=== PATIENT | female | born 1990 | race Two or more races ===

== ENCOUNTER 2022-09-12 09:42 | Emergency (ER) | payer OTHER ==
[~2022-09-12] VITALS: Ht 165.1 cm; Wt 76.9 kg
[2022-09-12 10:57] VITALS: BP 147/84
[2022-09-12 11:03] LABS: Basophils # (auto) 0 10 ^3/uL (0-0.2); Basophils % (auto) 0.5 % (0.0-2.0); Eosinophils # (auto) 0 10 ^3/uL (0-0.8); Eosinophils % (auto) 0.4 % (0.0-7.0); Hematocrit 42.4 % (36.0-46.0); Hemoglobin 13.9 g/dL (12.2-16.2); Lymphocytes # (auto) 2.2 10 ^3/uL (0.4-5.4); Lymphocytes % (auto) 22.8 % (10.0-50.0); Mean Corpuscular Hemoglobin 28.9 pg (28.0-32.0); Mean Corpuscular Hgb Conc. 32.8 g/dL (32.0-36.0); Monocytes # (auto) 0.5 10 ^3/uL (0-1.3); Monocytes % (auto) 5.7 % (0.0-12.0); Neutrophils # (auto) 6.7 10 ^3/uL (1.6-8.6); Neutrophils % (auto) 70.6 % (37.0-80.0); Red Blood Cells 4.82 10^6/uL (4.0-5.20); Red Cell Distribution Width 14.7 % (11.8-14.3); White Blood Cell 9.4 10^3/uL (4.4-10.8)
[2022-09-12 11:20] LABS: Albumin 3.7 g/dL (3.4-5.0); Calcium 8.9 mg/dL (8.5-10.1); Potassium 4.4 mmol/L (3.5-5.1)
[2022-09-12 11:24] LABS: BUN/Creatinine Ratio 11.1; Bilirubin, Total 0.4 mg/dL (0.2-1.0); Total Protein 6.8 g/dL (6.4-8.2)
[2022-09-12 11:38] LABS: Urine Bacteria FEW /hpf (None Seen); Urine Blood Negative /uL (Negative); Urine Specific Gravity 1.008 (1.001-1.035); Urine WBC 11 /hpf (0 - 5)
== END 2022-09-12 14:12 | disposition home or self-care (01) ==
LOC: ER 09:52
DX: Z32.01 Encounter for pregnancy test, result positive (principal); N83.201 Unspecified ovarian cyst, right side
CPT/HCPCS: 36415; 76801; 76817; 80053; 81001; 84702; 85025

== ENCOUNTER 2025-03-13 19:20 | Inpatient (IN) | payer OTHER ==
[~2025-03-13] VITALS: Ht 165.1 cm; Wt 77.3 kg
[2025-03-13] MEDS: SOD CHL 0.45% 1,000 ML IV ONE (02:37)
--- NOTE | 2025-03-13 19:51 | ED.PDOC ---
HPI (NEURO) HPI Comments 34 year old Female was BIB Mother for the c/c of CP, ABD pain, SOB, N/V. Per Mother pt was eating soup at home when she started to feel N/, and ABD Pain. Mother states she started experiencing associated CP shortly after. Pt is noted to be non-verbal at this time, and has progressively worsening symptoms before arrival. Pt has a SHx of a Cholecystectomy, and currently taking Ozempic. No other associated symptoms, modifiers, recent injuries or sick contacts present at this time. Time Seen by MD: 19:44 Reviewed Notes: Nurses Notes, Medications, Allergies Information Source: Patient, Relative (Mother) Severity: Moderate Headache Severity: None Timing: Hours Duration: Since onset, Hours Prehospital treatment: None Weakness Location: Generalized Onset: At rest Circumstances: Spontaneous Symptoms: Weakness, Difficult speech, Difficulty talking, Difficulty walking Before: Normal After: Confusion History of: None Associated Signs and Symptoms: Nausea, Vomiting, Chest Pain, Weakness Vital Signs Vital Signs Date Time Temp Pulse Resp B/P (MAP) Pulse Ox O2 Delivery O2 Flow Rate FiO2 03/13/25 21:36 86 18 129/88 03/13/25 19:25 99.3 100 99.3 Physical Exam General: Non-Verbal, diaphoretic Skin: Skin in warm, dry and intact. Appropriate color for ethnicity. HEENT: The head is normocephalic and atraumatic. Conjunctivae are clear without exudates or hemorrhage. Sclera is non-icteric. EOM are intact. No signs of nystagmus. Eyelids are normal in appearance without swelling or lesions. Oral mucosa is pink and moist Neck: The neck is supple with normal range of motion. No JVD. Cardiac: Heart rate and rhythm are normal. No murmurs, gallops, or rubs are auscultated. Left sided CP Respiratory: No signs of respiratory distress. Lung sounds are clear in all lobes bilaterally without rales, rhonchi, or wheezes. Abdominal: Abdomen is soft, without distention, guarding or rigidity. Epigastric ABD pain, N/V. Extremities: Upper and lower extremities are atraumatic in appearance without deformity or edema. Neurological: here is no facial asymmetry. Non-Verbal Psychiatric: Appropriate mood and affect. Good judgement and insight. Review of Systems: REVIEW OF SYSTEMS: No fever, no chills, or fatigue HEENT: No sore throat, no earache, no congestion, no neck pain. Cardiac: No palpitations. CP Lungs: No shortness of breath, no cough. GI: no diarrhea, no constipation, : No dysuria, frequency, or urgency. No hematuria. Musculoskeletal: No joint pain , no joint swelling, no extremity edema. Skin: No rash, no itching. Neuro: No headache, no dizziness, no weakness, Non-Verbal Past Medical History PAST MEDICAL HISTORY: Denies Surgical History: Denies all surgeries INFORMATION TECHNOLOGY SECURITY MANAGER History: Ectopic Family History Family History: Reviewed,noncontributory to illness Social History Smoker: Non-Smoker Alcohol: Denies ETOH Use Drugs: Denies Drug Use Lives In: Home Was a procedure done? Was a procedure done?: No Differential Diagnosis (SZ) CVA: CVA, Drug Overdose, Electrolyte Imbalance, Hypoglycemia X-Ray, Labs, Meds, VS Vital Signs Date Time Temp Pulse Resp B/P (MAP) Pulse Ox O2 Delivery O2 Flow Rate FiO2 03/13/25 21:36 86 18 129/88 03/13/25 20:46 87 03/13/25 19:52 118 03/13/25 19:25 99.3 132 24 113/54 (73) 100 99.3 Lab Test 03/13/25 21:30 03/13/25 20:59 03/13/25 19:58 Range/Units Urine Color Light-yellow Yellow Urine Clarity Clear Clear Urine pH 8.5 5.0-9.0 Urine Specific Burns > 1.050 H 1.001-1.035 Urine Protein 1+ H Negative Urine Ketones 4+ H Negative Urine Blood Trace H Negative /uL Urine Nitrite Negative Negative Urine Bilirubin Negative Negative Urine Urobilinogen Normal Negative mg/dL Urine Leukocyte Esterase Negative Negative /uL Urine RBC 2 0 - 4 /hpf Urine Microscopic WBC < 1 0-5 /HPF Urine Squamous Epithelial Cells Few <5 /hpf Urine Bacteria None seen None Seen /hpf Urine Glucose Normal Normal mg/dL Urine Opiates Screen Neg NEGATIVE Urine Fentanyl Screen Neg NEGATIVE Urine Barbiturates Screen Neg NEGATIVE Urine Phencyclidine Screen Neg NEGATIVE Urine Amphetamines Screen Neg NEGATIVE Urine Benzodiazepines Screen Neg NEGATIVE Urine Cocaine Screen Neg NEGATIVE Urine Cannabinoids Screen Neg NEGATIVE Troponin I High Sensitivity 9 3 L </=34 ng/L White Blood Count 17.0 H 4.4-10.8 10^3/uL Red Blood Count 5.30 H 4.0-5.20 10^6/uL Hemoglobin 15.2 12.2-16.2 g/dL Hematocrit 45.9 36.0-46.0 % Mean Corpuscular Volume 86.5 80.0-100.0 fL Mean Corpuscular Hemoglobin 28.7 28.0-32.0 pg Mean Corpuscular Hemoglobin Concent 33.2 32.0-36.0 g/dL Red Cell Distribution Width 14.9 H 11.8-14.3 % Platelet Count 313 140-450 10^3/uL Mean Platelet Volume 10.0 6.9-10.8 fL Neutrophils (%) (Auto) 83.5 H 37.0-80.0 % Lymphocytes (%) (Auto) 12.6 10.0-50.0 % Monocytes (%) (Auto) 3.0 0.0-12.0 % Eosinophils (%) (Auto) 0.3 0.0-7.0 % Basophils (%) (Auto) 0.6 0.0-2.0 % Neutrophils # (Auto) 14.2 H 1.6-8.6 10 ^3/uL Lymphocytes # (Auto) 2.1 0.4-5.4 10 ^3/uL Monocytes # (Auto) 0.5 0-1.3 10 ^3/uL Eosinophils # (Auto) 0 0-0.8 10 ^3/uL Basophils # (Auto) 0.1 0-0.2 10 ^3/uL Nucleated Red Blood Cells 0.0 % Prothrombin Time 10.2 9.3-11.8 sec Prothrombin Time INR 0.96 0.9-1.15 Sodium Level 141 136-145 mmol/L Potassium Level 3.7 3.5-5.1 mmol/L Chloride Level 104 98-107 mmol/L Carbon Dioxide Level 21 20-31 mmol/L Anion Gap 16 H 5-15 Blood Urea Nitrogen < 5 L 9-23 mg/dL Creatinine 0.67 0.550-1.02 mg/dL Glomerular Filtration Rate Calc 118 >90 mL/min BUN/Creatinine Ratio 7.5 L 10.0-20.0 Serum Glucose 137 H 74-106 mg/dL Calcium Level 10.3 8.7-10.4 mg/dL Magnesium Level 1.8 1.6-2.6 mg/dL Total Bilirubin 0.6 0.2-1.0 mg/dL Aspartate Amino Transferase (AST) 11 L 13-40 U/L Alanine Aminotransferase (ALT) 11 7-40 U/L Alkaline Phosphatase 86 46-116 U/L B-Type Natriuretic Peptide 14.69 0-100 pg/mL Total Protein 7.6 5.7-8.2 g/dL Albumin 4.8 3.2-4.8 g/dL Lipase 42 12-53 U/L PATIENT: CARMELA PADILLA ACCT: [id number] UNIT: [id number] : 1990 LOC: ER ROOM / BED: / AGE / SEX: 34 / F ADM STATUS: REG ER SERVICE 42 ORDERING PHYSICIAN: YUNIOR HUERTA MD PROCEDURE(s): CXR1 - CHEST XRAY 1 VIEW REASON: Epigastric pain ORDER NUMBER(s): [id number], ACCESSION NUMBER(s): [id number] CHEST RADIOGRAPH Indication: Epigastric pain Technique: Single frontal view of the chest was obtained Comparison: None FINDINGS: Lines and Tubes: None Lungs: No focal consolidation. Pleura: No effusion. No pneumothorax. Cardiomediastinal contours: Unremarkable Bones: No acute osseous abnormality. IMPRESSION: No acute cardiopulmonary disease. ENT: CARMELA PADILLA ACCT: [id number] UNIT: [id number] : 1990 LOC: ER ROOM / BED: / AGE / SEX: 34 / F ADM STATUS: REG ER SERVICE 42 ORDERING PHYSICIAN: YUNIOR HUERTA MD PROCEDURE(s): [place] - ANGIO HEAD/Neck REASON: Aphasia ORDER NUMBER(s): [id number], ACCESSION NUMBER(s): [id number] INDICATION: Aphasia COMPARISON: None TECHNIQUE:CTA head and neck with intravenous contrast. 3D/MIP image postprocessing was performed and images were used for interpretation and reporting. Radiation Dose Information: CT Dose: CTDI volume is 38.05 mGy. Dose-length product is 2272.73 mGy*cm FINDINGS: Noncontrast head: Normal brain volume information. Beam hardening artifact limits evaluation of the cerebellum. Otherwise, No hemorrhages, masses, mass effect, midline shift, herniation or cytotoxic edema following a large vascular territory. No intra- axial or extra-axial fluid collections. No evidence of hydrocephalus. The basal cisterns are patent. The pituitary gland, sella and parasellar regions are unremarkable. The cerebellar tonsils are normal position. Limited evaluation of the cerebellum due to artifact. The orbits and globes unremarkable. Mucoperiosteal thickening of the right maxillary and right frontal sinuses. No worrisome calvarial lesions. CTA neck: Normal 3-vessel origin left-sided aortic arch. Bilateral subclavian arteries unremarkable. Bilateral common carotid arteries and bilateral cervical ICAs are unremarkable. 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 Otherwise the vertebral arteries are unremarkable. CTA head: Bilateral ACAS, anterior communicating artery and bilateral MCAs are unremarkable. Bilateral intracranial ICAs unremarkable. Bilateral posterior communicating arteries are visualized with origin of bilateral downstairs maid and mild hypoplasia of bilateral P1 segments. The bilateral batch trucker are otherwise unremarkable. Bilateral superior cerebellar arteries, basilar artery and bilateral intracranial vertebral arteries unremarkable. The dural venous sinuses opacify normally. No abnormal intracranial enhancement. Mild mucoperiosteal thickening of the right frontal sinus and right maxillary sinus. The remainder of the paranasal sinuses and mastoids are clear. The thyroid gland is unremarkable. Mild biapical bronchiectasis. Otherwise, the lung apices are clear. IMPRESSION: No hemodynamically significant stenosis, or dissection involving the major intracranial and neck vessels. ENT: CARMELA PADILLA ACCT: [id number] UNIT: [id number] : 1990 LOC: ER ROOM / BED: / AGE / SEX: 34 / F ADM STATUS: REG ER SERVICE 42 ORDERING PHYSICIAN: YUNIOR HUERTA MD PROCEDURE(s): ABPLIV - CT AB PEL WITH IV CON ONLY REASON: Epigastric abdominal pain, nausea, vomiting ORDER NUMBER(s): [id number], ACCESSION NUMBER(s): [id number] Exam: CT CT AB PEL WITH IV CON ONLY History: Epigastric abdominal pain, nausea, vomiting Comparison Study: None TECHNIQUE: Multidetector CT of the abdomen and pelvis with IV contrast. Axial, coronal and sagittal multiplanar reformats were obtained from the axial data set by the technologist. Radiation Dose Information: CT Dose: CTDI volume is 22.88 mGy. Dose-length product is 2272.73 mGy*cm FINDINGS: Bibasilar ground-glass opacities. Partially visualized heart is unremarkable. Status post cholecystectomy. Liver, spleen, pancreas and adrenal glands are unremarkable. Kidneys, ureters and urinary bladder unremarkable. Heterogeneous appearance of the uterus. 2.2 cm left ovarian cyst. Mild wall thickening of the distal stomach. Fluid-filled nondistended small bowel loops measuring up to 2.5 cm. Mild wall Thickening of proximal small bowel loops within the left upper abdominal quadrant. Small bowel loops unremarkable. Appendix is unremarkable. Small to moderate amount of fecal material within the colon. Descending colon and sigmoid diverticulosis without diverticulitis. No evidence of intraperitoneal free air . Small amount of intrapelvic free fluid. No evidence of aortic aneurysm or dissection. Soft tissues unremarkable. No destructive osseous lesions are noted. IMPRESSION: Mild wall thickening of the stomach and proximal small bowel which may be due to inadequate distention/gastroenteritis. Fluid-filled nondistended proximal and mid small bowel loops measuring up to 2.5 cm which may be due to ileus/ early bowel obstruction. Descending colon and Sigmoid diverticulosis without diverticulitis. Small amount of intrapelvic free fluid which may be from gastroenteritis. 2.2 cm left ovarian cyst/ dominant follicle. Time of 1ST Reevaluation: 20:15 Reevaluation 1ST: Unchanged Patient Education/Counseling: Need For Follow Up Family Education/Counseling: Need For Follow Up Departure 1 Departure Time of Disposition: 21:46 Impression: Primary Impression: Abdominal pain Disposition: ADMITTED INPATIENT Condition: Stable e-Prescriptions Metronidazole (Flagyl) 500 Mg Tab 1 TAB PO TID, #30 TAB Prov: ZI GARDUNO MD 03/14/25 Levofloxacin Hemihydrate (LEVAQUIN 500 MG) 500 Mg Tab 500 MG PO DAILY for 10 Days, #10 TAB Prov: ZI GARDUNO MD 03/14/25 Comments 34-year-old female who presented to the emergency department with severe abdominal pain, patient was aphasic on arrival. Patient's mother at bedside noted the patient possibly had some facial asymmetry as well. Stroke workup was initiated with showed no LVO. Tele neurology was consulted who believes patient's symptoms are likely due to stroke, also patient's aphasia resolved while in the emergency department. CT abdomen and pelvis suggestive of early ileus. Patient admitted to hospitalist service for further treatment, evaluation and monitoring. Critical Care Note Critical Care Time?: No Stability Stability form required: No I personally scribed for YUNIOR HUERTA MD ([email or web address]) on 03/13/25 at 19:51. Electronically submitted by Charbel Diaz ([email or web address]). I personally scribed for YUNIOR HUERTA MD ([email or web address]) on 03/13/25 at 20:53. Electronically submitted by Charbel Diaz ([email or web address]). I personally scribed for YUNIOR HUERTA MD ([email or web address]) on 03/13/25 at 21:09. Electronically submitted by Charbel Diaz ([email or web address]). I personally scribed for YUNIOR HUERAT MD ([email or web address]) on 03/13/25 at 21:48. Electronically submitted by Charbel Diaz ([email or web address]). YUNIOR HUERTA MD Mar 13, 2025 19:51
[2025-03-13 20:12] LABS: Basophils # (auto) 0.1 10 ^3/uL (0-0.2); Basophils % (auto) 0.6 % (0.0-2.0); Eosinophils # (auto) 0 10 ^3/uL (0-0.8); Eosinophils % (auto) 0.3 % (0.0-7.0); Hematocrit 45.9 % (36.0-46.0); Hemoglobin 15.2 g/dL (12.2-16.2); Lymphocytes # (auto) 2.1 10 ^3/uL (0.4-5.4); Lymphocytes % (auto) 12.6 % (10.0-50.0); Mean Corpuscular Hemoglobin 28.7 pg (28.0-32.0); Mean Corpuscular Hgb Conc. 33.2 g/dL (32.0-36.0); Mean Corpuscular Volume 86.5 fL (80.0-100.0); Monocytes # (auto) 0.5 10 ^3/uL (0-1.3); Neutrophils # (auto) 14.2 10 ^3/uL (1.6-8.6); Neutrophils % (auto) 83.5 % (37.0-80.0); Platelet Count (auto) 313 10^3/uL (140-450); Red Cell Distribution Width 14.9 % (11.8-14.3)
[2025-03-13 20:28] LABS: INR 0.96 (0.9-1.15); Prothrombin Time 10.2 sec (9.3-11.8)
[2025-03-13 20:30] LABS: Alanine Aminotransferase 11 U/L (7-40); Alkaline Phosphatase 86 U/L (46-116); Calcium 10.3 mg/dL (8.7-10.4); Carbon Dioxide 21 mmol/L (20-31); Chloride 104 mmol/L (98-107)
[2025-03-13] MEDS: SODIUM CHLORIDE 0.9% 1,000 ML IV ONE (20:30)
[2025-03-13] MEDS: ONDANSETRON HCL 4 MG/2 ML VIAL IV ONE ×2 (20:30→23:32)
[2025-03-13 20:31] LABS: Anion Gap 16 (5-15); Bilirubin, Total 0.6 mg/dL (0.2-1.0); Magnesium 1.8 mg/dL (1.6-2.6); Potassium 3.7 mmol/L (3.5-5.1); Sodium 141 mmol/L (136-145); Total Protein 7.6 g/dL (5.7-8.2)
[2025-03-13 20:33] LABS: Albumin 4.8 g/dL (3.2-4.8); Aspartate Aminotransferase 11 U/L (13-40); BUN/Creatinine Ratio 7.5 (10.0-20.0); Blood Urea Nitrogen < 5 mg/dL (9-23); Glucose 137 mg/dL (74-106)
[2025-03-13] MEDS: IOHEXOL 350 MG/ML 100ML IJ ONE (20:35)
[2025-03-13 20:43] LABS: Lipase 42 U/L (12-53)
--- NOTE | 2025-03-13 20:46 | DVH ---
CHEST RADIOGRAPH Indication: Epigastric pain Technique: Single frontal view of the chest was obtained Comparison: None FINDINGS: Lines and Tubes: None Lungs: No focal consolidation. Pleura: No effusion. No pneumothorax. Cardiomediastinal contours: Unremarkable Bones: No acute osseous abnormality. IMPRESSION: No acute cardiopulmonary disease.
--- NOTE | 2025-03-13 20:59 | DVH ---
INDICATION: Aphasia COMPARISON: None TECHNIQUE:CTA head and neck with intravenous contrast. 3D/MIP image postprocessing was performed and images were used for interpretation and reporting. Radiation Dose Information: CT Dose: CTDI volume is 38.05 mGy. Dose-length product is 2272.73 mGy*cm FINDINGS: Noncontrast head: Normal brain volume information. Beam hardening artifact limits evaluation of the cerebellum. Otherw ise, No hemorrhages, masses, mass effect, midline shift, herniation or cytotoxic edema following a la rge vascular territory. No intra-axial or extra-axial fluid collections. No evidence of hydrocephalus . The basal cisterns are patent. The pituitary gland, sella and parasellar regions are unremarkable. The cerebellar tonsils are normal position. Limited evaluation of the cerebellum due to artifact. The orbits and globes unremarkable. Mucoperiosteal thickening of the right maxillary and right fronta l sinuses. No worrisome calvarial lesions. CTA neck: Normal 3-vessel origin left-sided aortic arch. Bilateral subclavian arteries unremarkable. Bilateral common carotid arteries and bilateral cervical ICAs are unremarkable. 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 Otherwise the vert ebral arteries are unremarkable. CTA head: Bilateral ACAS, anterior communicating artery and bilateral MCAs are unremarkable. Bilateral intracra nial ICAs unremarkable. Bilateral posterior communicating arteries are visualized with origin of bilateral managed services sales consultant and mil d hypoplasia of bilateral P1 segments. The bilateral change management expert are otherwise unremarkable. Bilateral supe rior cerebellar arteries, basilar artery and bilateral intracranial vertebral arteries unremarkable. The dural venous sinuses opacify normally. No abnormal intracranial enhancement. Mild mucoperiosteal thickening of the right frontal sinus and right maxillary sinus. The remainder o f the paranasal sinuses and mastoids are clear. The thyroid gland is unremarkable. Mild biapical bron chiectasis. Otherwise, the lung apices are clear. IMPRESSION: No hemodynamically significant stenosis, or dissection involving the major intracranial and neck vess els.
--- NOTE | 2025-03-13 21:13 | DVH ---
Exam: CT CT AB PEL WITH IV CON ONLY History: Epigastric abdominal pain, nausea, vomiting Comparison Study: None TECHNIQUE: Multidetector CT of the abdomen and pelvis with IV contrast. Axial, coronal and sagittal m ultiplanar reformats were obtained from the axial data set by the technologist. Radiation Dose Information: CT Dose: CTDI volume is 22.88 mGy. Dose-length product is 2272.73 mGy*cm FINDINGS: Bibasilar ground-glass opacities. Partially visualized heart is unremarkable. Status post cholecystectomy. Liver, spleen, pancreas and adrenal glands are unremarkable. Kidneys, ureters and urinary bladder unremarkable. Heterogeneous appearance of the uterus. 2.2 cm lef t ovarian cyst. Mild wall thickening of the distal stomach. Fluid-filled nondistended small bowel loops measuring up to 2.5 cm. Mild wall Thickening of proximal small bowel loops within the left upper abdominal quadran t. Small bowel loops unremarkable. Appendix is unremarkable. Small to moderate amount of fecal materi al within the colon. Descending colon and sigmoid diverticulosis without diverticulitis. No evidence of intraperitoneal free air . Small amount of intrapelvic free fluid. No evidence of aortic aneurysm or dissection. Soft tissues unremarkable. No destructive osseous lesions are noted. IMPRESSION: Mild wall thickening of the stomach and proximal small bowel which may be due to inadequate distentio n/gastroenteritis. Fluid-filled nondistended proximal and mid small bowel loops measuring up to 2.5 cm which may be due to ileus/ early bowel obstruction. Descending colon and Sigmoid diverticulosis without diverticulitis. Small amount of intrapelvic free fluid which may be from gastroenteritis. 2.2 cm left ovarian cyst/ dominant follicle.
[2025-03-13 21:33] LABS: Urine Bacteria None Seen /hpf (None Seen)
[2025-03-13] MEDS: METOCLOPRAMIDE HCL 5MG/ml INJ 2ml VIAL IV ONE (21:35)
[2025-03-13] MEDS: MORPHINE SULFATE INJ 2 MG/ml SYRG IV ONE (21:36)
[2025-03-13] MEDS: MORPHINE SULFATE 4 MG/ML SYR/VIAL ONE (21:37)
--- NOTE | 2025-03-13 21:54 | BSKYNEURO ---
[facility] Note # Demographics Consult Type: Acute Stroke Level 2 (4.5-24 hrs) Patient Location: Emergency Room First Name: CARMELA Last Name: LOI DUPONT Date of : 1990 Age: 34 Gender: Female Facility: [facility] Time of Initial Page (): 03/13/2025 20:56 Time of Return Call (): 03/13/2025 20:57 # HPI History: [id number] Patient is coming to ER for abdominal pain, vomiting and she was having numbness on both arm and legs. She is having bouts of numbness and weakness in both hands with severe abdominal pain. She also had numbness in her moth and around lips. She also had a headache for past 3 days H/O migraines # Scores Time of exam and NIHSS (): 03/13/2025 21:32 Level of Consciousness 1a: [0] = Alert; keenly responsive LOC Questions 1b: [0] = Answers both questions correctly LOC Commands 1c: [0] = Performs both tasks correctly Best Gaze 2: [0] = Normal Visual 3: [0] = No visual loss Facial Palsy 4: [0] = Normal symmetrical movements Motor Arm Left 5a: [0] = No drift Motor Arm Right 5b: [0] = No drift Motor Leg Left 6a: [0] = No drift Motor Leg Right 6b: [0] = No drift Limb Ataxia 7: [0] = Absent Sensory 8: [1] = Txib-pi-[id number] sensory loss Best Language 9: [0] = No aphasia Dysarthria 10: [0] = Normal Extinction and Inattention 11: [0] = No abnormality NIHSS Total: 1 # Assessment Impression: - Migraine (Complex) - Stroke Mimic Patient symptoms are consistent with complex migraine, if symptoms resolve after treatment, no further work up needed. If symptoms are persistent, will need MRI brain without contrast. # Plan Thrombolytic/Intervention: NOT IV Thrombolysis or IA Intervention candidate Thrombolytic Exclusion (< 3 hour window): - non-disabling deficit Intraarterial Exclusion: - no large vessel occlusion (LVO) Thrombolytic/Intraarterial Exclusion: - IV thrombolytic and IA intervention considered but not recommended as this patient's symptoms are not clinically consistent with an assumed diagnosis of stroke Labs: - CBC - comprehensive metabolic panel - ua - ESR Medication: - migraine cocktail: Toradol 30 mg IV + Benadryl 25 mg IV + antiemetic IV Other: - If patient has any neurological deterioration please call me back immediately - neurology referral as outpatient - I have discussed my recommendations with the referring provider - may discharge home if complete symptom resolution and all urgent imaging negative for acute pathology Additional Recommendations: -Please start Magnesium 2 gm IV+ 500 mg Depakote IV + 500 ml normal saline -Please give 1 dose Dexamethasone 4 mg IV once # Logistics Attestation of consult completion: The patient is located at: [facility]. Facility staff participated in the visit. I performed this telemedicine visit from my offsite office utilizing interactive 2 way audio and visual telecommunication technology. Total time spent in telemedicine encounter: I spent 10 minutes reviewing clinical data and/or imaging, obtaining history, examining the patient, communic ating with the onsite care team, and in preparation of this report. # Demographics First Name: CARMELA Last Name: LOI DUPONT Facility: [facility] Yes JASIEL MORENO MD Mar 13, 2025 21:54
[2025-03-13 22:02] LABS: Urine Blood TRACE /uL (Negative); Urine Clarity Clear (Clear); Urine Color Light-Yellow (Yellow); Urine Protein, UAD 1+ (Negative); Urine Squamous Epithelial Cell FEW /hpf (<5); Urine Urobilinogen Normal (Negative); Urine WBC < 1 /HPF (0-5); Urine pH 8.5 (5.0-9.0)
[2025-03-13 22:03] LABS: Amphetamine Screen, Urine Neg (NEGATIVE); Barbiturate Scree,Urine Neg (NEGATIVE); Benzodiazephine Screen, Urine Neg (NEGATIVE); Cannabinoid Screen, Urine Neg (NEGATIVE); Cocaine Screen, Urine Neg (NEGATIVE); Opiate Scree,Urine Neg (NEGATIVE); Phencyclidine Screen, Urine Neg (NEGATIVE)
[2025-03-13 22:07] LABS: Urine Specific Gravity > 1.050 (1.001-1.035)
[2025-03-13] MEDS ORDERED: NITROGLYCERIN 0.4 MG SL TAB SL PRN (22:45)
[2025-03-13] MEDS ORDERED: MORPHINE SULFATE 4 MG/ML SYR/VIAL IV PRN (23:00)
[2025-03-13] MEDS: MAGNESIUM SULFATE 1GM/100ML 100 ML IV SCH (23:45)
[2025-03-14 03:33] LABS: Basophils # (auto) 0 10 ^3/uL (0-0.2); Basophils % (auto) 0.3 % (0.0-2.0); Eosinophils # (auto) 0 10 ^3/uL (0-0.8); Hematocrit 42.4 % (36.0-46.0); Hemoglobin 14.1 g/dL (12.2-16.2); Lymphocytes # (auto) 1.5 10 ^3/uL (0.4-5.4); Mean Corpuscular Hemoglobin 28.5 pg (28.0-32.0); Mean Corpuscular Hgb Conc. 33.2 g/dL (32.0-36.0); Monocytes # (auto) 0.4 10 ^3/uL (0-1.3); Neutrophils % (auto) 85.7 % (37.0-80.0); Nucleated Red Blood Cells % 0.1 %; Platelet Count (auto) 309 10^3/uL (140-450); Red Blood Cells 4.93 10^6/uL (4.0-5.20)
[2025-03-14 03:46] LABS: Albumin 4.5 g/dL (3.2-4.8); Alkaline Phosphatase 76 U/L (46-116); Anion Gap 11 (5-15); Bilirubin, Total 0.5 mg/dL (0.2-1.0); Carbon Dioxide 23 mmol/L (20-31); Chloride 107 mmol/L (98-107); Sodium 141 mmol/L (136-145); Total Protein 6.9 g/dL (5.7-8.2)
[2025-03-14] MEDS: ONDANSETRON HCL 4 MG/2 ML VIAL IV PRN (03:49)
[2025-03-14 03:54] VITALS: PULSE 80; RESP 12; O2SAT 98
[2025-03-14 03:56] LABS: Alanine Aminotransferase < 9 U/L (7-40); BUN/Creatinine Ratio 8.5 (10.0-20.0); Blood Urea Nitrogen < 5 mg/dL (9-23); Calcium 8.6 mg/dL (8.7-10.4); Glucose 120 mg/dL (74-106)
[2025-03-14] MEDS: ACETAMINOPHEN 500 MG TAB or CAP PO PRN (04:00)
[2025-03-14 05:07] LABS: Aspartate Aminotransferase 12 U/L (13-40)
[2025-03-14 05:08] VITALS: BP 102/59; PULSE 93; RESP 13; TEMP 98.9; O2SAT 98
[2025-03-14 05:10] VITALS: BP 102/59; PULSE 93; RESP 13; TEMP 98.8; O2SAT 98
[2025-03-14] MEDS ORDERED: SEMA2INJ3 SC (05:26)
[2025-03-14] MEDS: metroNIDAZOLE 500MG/100ML 100 ML IV SCH (05:37)
--- NOTE | 2025-03-14 06:32 | DVHHP2 ---
Admitting Diagnosis: SBO and gastroenteritis History of Present Illness HPI 34 y.o. female was brought to the ER with nausea and abdominal pain after having a meal. Family also reported CP, aphasia and on arrival to the ER pt was evaluated for stroke, negative. However, abdominal CT showed SBO and gastroenteritis. Home Meds Reported Medications Semaglutide (Ozempic) 2 Mg/3 Ml Inj, 2 MG SC, INJ 03/14/25 Past Medical History Past Surgical History: Cholecystectomy Patient Family History: Alcoholism G8 FATHER FH: breast cancer FH: colon cancer Review of Systems Gastrointestinal: Nausea, Vomiting, Abdominal Pain H&P Exam Vital Signs Vital Signs Date Time Temp Pulse Resp B/P (MAP) Pulse Ox O2 Delivery O2 Flow Rate FiO2 03/14/25 05:10 98.8 93 13 102/59 (73) 98 98.8 03/14/25 03:54 Room Air* 0 21 General Appeara: Obese Head Exam: Normal inspection Neck Exam: Non-tender Eye Exam: bilateral eye PERRL, bilateral eye EOMI Pulmonary/Respiratory: Lungs clear Cardiovascular/Chest: Tachycardia Abdominal Pain Onset Location: Generalized abdomen Neuro/Mental St: Alert, Oriented Labs/Xrays Labs Test 03/14/25 03:20 03/13/25 22:50 03/13/25 21:30 03/13/25 19:58 Range/Units White Blood Count 14.0 H 4.4-10.8 10^3/uL Red Blood Count 4.93 4.0-5.20 10^6/uL Hemoglobin 14.1 12.2-16.2 g/dL Hematocrit 42.4 36.0-46.0 % Mean Corpuscular Volume 86.0 80.0-100.0 fL Mean Corpuscular Hemoglobin 28.5 28.0-32.0 pg Mean Corpuscular Hemoglobin Concent 33.2 32.0-36.0 g/dL Red Cell Distribution Width 15.0 H 11.8-14.3 % Platelet Count 309 140-450 10^3/uL Mean Platelet Volume 9.8 6.9-10.8 fL Neutrophils (%) (Auto) 85.7 H 37.0-80.0 % Lymphocytes (%) (Auto) 11.0 10.0-50.0 % Monocytes (%) (Auto) 3.0 0.0-12.0 % Eosinophils (%) (Auto) 0.0 0.0-7.0 % Basophils (%) (Auto) 0.3 0.0-2.0 % Neutrophils # (Auto) 12.0 H 1.6-8.6 10 ^3/uL Lymphocytes # (Auto) 1.5 0.4-5.4 10 ^3/uL Monocytes # (Auto) 0.4 0-1.3 10 ^3/uL Eosinophils # (Auto) 0 0-0.8 10 ^3/uL Basophils # (Auto) 0 0-0.2 10 ^3/uL Nucleated Red Blood Cells 0.1 % Sodium Level 141 136-145 mmol/L Potassium Level 4.0 3.5-5.1 mmol/L Chloride Level 107 98-107 mmol/L Carbon Dioxide Level 23 20-31 mmol/L Anion Gap 11 5-15 Blood Urea Nitrogen < 5 L 9-23 mg/dL Creatinine 0.59 0.550-1.02 mg/dL Glomerular Filtration Rate Calc 122 >90 mL/min BUN/Creatinine Ratio 8.5 L 10.0-20.0 Serum Glucose 120 H 74-106 mg/dL Calcium Level 8.6 L 8.7-10.4 mg/dL Total Bilirubin 0.5 0.2-1.0 mg/dL Aspartate Amino Transferase (AST) 12 L 13-40 U/L Alanine Aminotransferase (ALT) < 9 7-40 U/L Alkaline Phosphatase 76 46-116 U/L Total Protein 6.9 5.7-8.2 g/dL Albumin 4.5 3.2-4.8 g/dL Troponin I High Sensitivity 17 </=34 ng/L Beta HCG, Quantitative 0.4 L 1.5-4.2 mIU/mL Urine Color Light-yellow Yellow Urine Clarity Clear Clear Urine pH 8.5 5.0-9.0 Urine Specific [place] > 1.050 H 1.001-1.035 Urine Protein 1+ H Negative Urine Ketones 4+ H Negative Urine Blood Trace H Negative /uL Urine Nitrite Negative Negative Urine Bilirubin Negative Negative Urine Urobilinogen Normal Negative mg/dL Urine Leukocyte Esterase Negative Negative /uL Urine RBC 2 0 - 4 /hpf Urine Microscopic WBC < 1 0-5 /HPF Urine Squamous Epithelial Cells Few <5 /hpf Urine Bacteria None seen None Seen /hpf Urine Glucose Normal Normal mg/dL Urine Opiates Screen Neg NEGATIVE Urine Fentanyl Screen Neg NEGATIVE Urine Barbiturates Screen Neg NEGATIVE Urine Phencyclidine Screen Neg NEGATIVE Urine Amphetamines Screen Neg NEGATIVE Urine Benzodiazepines Screen Neg NEGATIVE Urine Cocaine Screen Neg NEGATIVE Urine Cannabinoids Screen Neg NEGATIVE Prothrombin Time 10.2 9.3-11.8 sec Prothrombin Time INR 0.96 0.9-1.15 Magnesium Level 1.8 1.6-2.6 mg/dL B-Type Natriuretic Peptide 14.69 0-100 pg/mL Lipase 42 12-53 U/L Assessment/Plan Problem List: (1) SBO (small bowel obstruction) (2) Gastroenteritis Plan NPO, IVF, SBFT, Sx consult, Abx Plan discussed with: Patient ALESSANDRA BOWMAN MD Mar 14, 2025 06:32
[2025-03-14 08:00] VITALS: BP 114/62; PULSE 77; RESP 18; TEMP 99.3; O2SAT 98
[2025-03-14] MEDS ORDERED: GASTROGRAFIN 120 ML SOL ONE (08:11)
[2025-03-14] MEDS: CIPROFLOXACIN 400MG/200ML 200 ML IV SCH (09:36)
--- NOTE | 2025-03-14 10:02 | DVH ---
Procedure: XY SMALL BOWEL SERIES-W GASTROGRA Exam Date: 03/14/2025 08:27 AM Reason for study/Clinical History: SBO Comparison Study: None Technique: Single contrast small bowel series performed. Findings: Initial garbage pick up man view of the abdomen and pelvis appears demonstrates no acute process. Contrast is identified within the colon by 1 hour. This represents a normal small bowel transit time . Small bowel loops are normal in size. Normal mucosal pattern. No evidence of small bowel obstructi on, stricture, or mucosal abnormality. The terminal ileum is well visualized and is unremarkable. IMPRESSION: Normal small bowel series. END IMPRESSION:
--- NOTE | 2025-03-14 10:15 | ECG ---
[facility] [place] Test Date: 2025-03-13 Test Time: 20:46:34 Pat Name: CARMELA DUPONTDepartment: ED Room: [address] [place] [address] Gender: F Economic Research Assistant: BERTO : 1990 Requested By: YUNIOR HUERTA Order Number: [id number] Reading MD: Garry Hilliard Measurements Intervals [place] Rate: 87 P: 61 TN: 129 QRS: 39 QRSD: 79 T: 41 QT: 363 QTc: 437 Interpretive Statements Sinus rhythm Electronically Signed On 03-15-2025 21:04:16 PDT by Garry Hilliard Please click the below link to view image of tracing.
--- NOTE | 2025-03-14 10:59 | ECG ---
[facility] Test Date: 2025-03-13 Test Time: 19:52:02 Pat Name: CARMELA DUPONTDepartment: ER Room: [address] [place] [address] A Gender: F Carpenter Ship: XAVIER : 1990 Requested By: YUNIOR HUERTA Order Number: [id number] Reading MD: Garry Hilliard Measurements Intervals [place] Rate: 118 P: 70 GA: 112 QRS: 42 QRSD: 81 T: -5 QT: 312 QTc: 438 Interpretive Statements Sinus tachycardia Inferior infarct, age indeterminate Electronically Signed On 03-15-2025 21:03:49 PDT by Garry Hilliard Please click the below link to view image of tracing.
--- NOTE | 2025-03-14 11:34 | DVHPN2 ---
Progress Note Date Seen: Mar 14, 2025 Medical Necessity Reason Pt with a Central, PICC or Fol: No Objective vital signs Vital Sign Date Time Temp Pulse Resp B/P (MAP) Pulse Ox O2 Delivery O2 Flow Rate FiO2 03/14/25 08:00 99.3 77 18 114/62 (79) 98 99.3 03/14/25 03:54 Room Air* 0 21 Total Intake and Output 03/13/25 03/13/25 03/14/25 15:00 23:00 07:00 Intake Total 200 ml Balance 200 ml medications Current Medications Medications Dose Ordered Sig/Radha Route Start Time Stop Time Status Last Admin Dose Admin Nitroglycerin 0.4 mg Q5MINP PRN SL 03/13/25 22:45 Morphine Sulfate 2 mg Q30M PRN IV 03/13/25 23:00 Ciprofloxacin 200 ml @ 200 mls/hr BID IV 03/14/25 10:00 03/14/25 09:36 200 MLS/HR Metronidazole 100 ml @ 100 mls/hr TID IV 03/14/25 06:00 03/14/25 05:37 100 MLS/HR Acetaminophen 500 mg Q4HP PRN PO 03/14/25 03:45 03/14/25 04:00 500 MG Ondansetron HCl 4 mg Q6HPRN PRN IV 03/14/25 03:45 03/14/25 03:49 4 MG laboratory and microbiology Laboratory Tests 03/14/25 03:20 Test 03/14/25 03:20 Range/Units Serum Glucose 120 H 74-106 mg/dL Problem List/Assessment/Plan Problem List/Assessment/Plan 03/14/25 had a bowel movement after gastrografin small bowel follow through X ray, abdomen non tender, non distended, may gave po intake, DC home if tolerating po Plan discussed with: Patient JOHAN PRICE MD Mar 14, 2025 11:34
[2025-03-14] MEDS ORDERED: LEVO500T91 PO (11:44)
[2025-03-14] MEDS ORDERED: METR-344 PO (11:44)
--- NOTE | 2025-03-14 11:55 | DVHDS2 ---
New Physician D'charge PN Admitting Diagnosis Admitting Diagnosis n/v Discharge Diagnosis gastroenteritis Operations or Procedures none Reason(s) For Hospitalization Surgery Hospital Course 34 F who comes to ER for n/v and abdominal pain. Initial WBC was noted to be 17k and her chem panel was nml. She had a CT abdomen done which showed possible SBO and dilated loops of bowel. Surgery was consulted and they recommended SBFT which did NOT show any bowel obstruction. She was started on IV abx since admiss ions and given IV fluid hydration. Her diet was advanced by surgery and she is doing well. WBC trended down to 14k and chem panel including renal function is normal. Hemodynamically she is stable with nml BP, afebrile and nml HR. She will be discharged home today once tolerated her diet. Scripts for PO Abx sent to patients pharmacy on file. [facility] to arrange for all outpt follow up. Treatment Plan Discharge Condition of Discharge Good Disposition Home Discharge Instructions Diet: Cardiac 2g Na,low cholest Activity: No Restrictions, As Tolerated Medications: see med sheet Follow Up Care Follow Up/Referral: pcp Discharge Statement: "Patient was advised to return to the ER or call 911 if any headaches, dizziness, shortness of breath, chest pain, abdominal pain, bleeding, fevers, or worsening of medical condition. Patient was counseled about treatment plan, medications, possible side effects, patientverbalized understanding. All questions were answered to the best of my ability. This discharge took greater then 30 minutes in planning, reviewing documentation, counseling the patient, and discussing with other team members." ZI GARDUNO MD Mar 14, 2025 11:55
[2025-03-14 13:00] VITALS: BP 99/56; PULSE 73; TEMP 98.2; O2SAT 98
[2025-03-14 13:17] VITALS: BP 99/56; PULSE 73; RESP 16; TEMP 98.2; O2SAT 98
== END 2025-03-14 13:56 | disposition home or self-care (01) | DRG 392 ==
LOC: ER 19:20 → OVERFLOW 22:37
PROVIDERS: ADMIT Internal Medicine; ATTEND Internal Medicine
DX: K52.9 Noninfective gastroenteritis and colitis, unspecified (principal); K56.609 Unspecified intestinal obstruction, unspecified as to partial versus complete obstruction; G43.809 Other migraine, not intractable, without status migrainosus; F10.20 Alcohol dependence, uncomplicated; Z90.49 Acquired absence of other specified parts of digestive tract; Z87.59 Personal history of other complications of pregnancy, childbirth and the puerperium; Z80.3 Family history of malignant neoplasm of breast; Z80.0 Family history of malignant neoplasm of digestive organs; Y90.9 Presence of alcohol in blood, level not specified
CPT/HCPCS: 36415; 70496; 70498; 71045; 74177; 74250; 80053; 80307; 81001; 83690; 83735; 83880; 84484; 84702; 85025; 85610; 93005; 96361; 96374; G0378; J2405; J3490